=== PATIENT | female | born 1945 | race Caucasian/White ===

== ENCOUNTER 2018-04-10 09:44 | Emergency (ER) | payer MEDICARE, BC ==
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
[2018-04-10 10:25] VITALS: BP 136/48
--- NOTE | 2018-04-10 11:06 | UC ---
Skin Complaint HPI - HPI Summary HPI Summary: 73-year-old woman comes in with several days of rash on the left wrist. She reports that it's poison giana. He has bottles with an erythematous base. It's itchy. His now starting to spread to her right hand and the left leg. She feels well otherwise. She did try a topical but that did not keep from spreading. - History of Current Complaint Chief Complaint: UCRash Time Seen by Provider: 04/10/18 10:58 Stated Complaint: RASH L HAND Pain Intensity: 0 - Allergy/Home Medications Allergies/Adverse Reactions: Allergies Allergy/AdvReac Type Severity Reaction Status Date / Time ANY BONE DENSITY MEDICATION Allergy OSTEONECROS Uncoded 04/10/18 10:25 IS Review of Systems Constitutional: Negative Skin: Other - SEE HPI ENT: Negative Respiratory: Negative Cardiovascular: Negative Gastrointestinal: Negative Motor: Negative Neurovascular: Negative Musculoskeletal: Negative Neurological: Negative Psychological: Negative Is Patient Immunocompromised?: No All Other Systems Reviewed And Are Negative: Yes PMH/Surg Hx/FS Hx/Imm Hx - Additional Past Medical History Additional PMH: NO DIABETES - Surgical History Surgical History: Yes Surgery Procedure, Year, and Place: HYSTERECTOMY-2001. [facility]ACT [facility]IES-[facility]. 2 BLADDER LIFTS - Family History Known Family History: Negative: Diabetes - Social History Alcohol Use: Daily Alcohol Amount: 2 PER DAY Substance Use Type: None Smoking Status (MU): Never Smoked Tobacco Have You Smoked in the Last Year: No Physical Exam Triage Information Reviewed: Yes Appearance: Well-Appearing, No Pain Distress, Well-Nourished Vital Signs: Initial Vital Signs Temp 97.6 F 04/10/18 10:21 Pulse 67 04/10/18 10:21 Resp 18 04/10/18 10:21 BP 136/48 04/10/18 10:21 Pulse Ox 97 04/10/18 10:21 Vital Signs Reviewed: Yes Eye Exam: Normal Eyes: Positive: Conjunctiva Clear Neck exam: Normal Neck: Positive: Supple Respiratory: Positive: No respiratory distress Musculoskeletal Exam: Normal Musculoskeletal: Positive: Strength Intact, ROM Intact Neurological Exam: Normal Neurological: Positive: Alert, Muscle Tone Normal Psychological Exam: Normal Psychological: Positive: Age Appropriate Behavior Skin: Positive: Other - On the left wrist there is a 4 cm linear rash that is 2 cm in diameter that has clear fluid-filled vesicles on an erythematous base. Same rash is also on the right forearm in several places each one being 1 cm in diameter. The same rash with 1 cm diameter left lower leg. Course/Dx - Diagnoses Provider Diagnoses: POISON GIANA Discharge - Sign-Out/Discharge Documenting (check all that apply): Patient Departure All imaging exams completed and their final reports reviewed: No Studies - Discharge Plan Condition: Stable Disposition: HOME Prescriptions: predniSONE TAB* [Deltasone 20 MG TAB*] 40 mg PO DAILY #10 tab Patient Education Materials: Poison Giana (ED) Referrals: Sue Fairbanks MD [Primary Care Provider] - Additional Instructions: FOLLOW UP WITH YOUR DOCTOR IF NOT COMPLETELY IMPROVED. GET RECHECKED FOR ANY WORSENING OF YOUR CONDITION OR QUESTIONS OR CONCERNS. - Billing Disposition and Condition Condition: STABLE Disposition: Home
== END 2018-04-10 11:14 | disposition home or self-care (01) ==
LOC: UCEAST 09:44
DX: L23.7 Allergic contact dermatitis due to plants, except food (principal); Z88.8 Allergy status to other drugs, medicaments and biological substances; Z72.89 Other problems related to lifestyle
CPT/HCPCS: 99212; G0463

== ENCOUNTER 2019-05-08 10:18 | Emergency (ER) | payer MEDICARE ==
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
--- NOTE | 2019-05-08 11:10 | UC ---
Respiratory Complaint HPI - HPI Summary HPI Summary: 74 yo female presents with URI symptoms. She tells me that for the last week she has had an intermittently productive cough with yellow phlegm. She has been taking dayquill/nyquill with little relief. She does not smoke. Denies fever, chills, sore throat, sinus symptoms, SOB, chest pain. - History of Current Complaint Stated Complaint: RESP ISSUE Time Seen by Provider: 05/08/19 11:09 Hx Obtained From: Patient Onset/Duration: Gradual Onset Severity Currently: None - Allergies/Home Medications Allergies/Adverse Reactions: Allergies Allergy/AdvReac Type Severity Reaction Status Date / Time ANY BONE DENSITY MEDICATION Allergy OSTEONECROS Uncoded 05/08/19 11:04 IS Home Medications: Home Medications Aspirin 81 mg CHEW TAB* [Aspirin Low Dose TAB*] 81 mg PO DAILY 05/08/19 [ History Confirmed 05/08/19] PMH/Surg Hx/FS Hx/Imm Hx Endocrine History: Dyslipidemia Cardiovascular History: Hypertension Respiratory History: Asthma - Surgical History Surgical History: Yes Surgery Procedure, Year, and Place: HYSTERECTOMY-2001. [facility]IES-[facility] [place]. 2 BLADDER LIFTS - Family History Known Family History: Negative: Diabetes - Social History Lives: With Family Alcohol Use: Daily Alcohol Amount: 2 PER DAY Substance Use Type: None Smoking Status (MU): Never Smoked Tobacco Have You Smoked in the Last Year: No Review of Systems All Other Systems Reviewed And Are Negative: No Constitutional: Positive: Negative Skin: Positive: Negative Eyes: Positive: Negative ENT: Positive: Negative Respiratory: Positive: Cough Cardiovascular: Positive: Negative Gastrointestinal: Positive: Negative Neurological: Positive: Negative Psychological: Positive: Negative Physical Exam - Summary Physical Exam Summary: GENERAL: NAD. WDWN. No pain distress. SKIN: No rashes, sores, lesions, or open wounds. HEENT: Head: AT/NC Eyes: EOM intact. Conjunctiva clear without inflammation or discharge. Ears: Hearing grossly normal. TMs intact, no bulging, erythema, or edema. Nose: Nasal mucosa pink and moist. NTTP maxillary and frontal sinus. Throat: Posterior oropharynx without exudates, erythema, or tonsillar enlargement. Uvula midline. NECK: Supple. Nontender. No lymphadenopathy. CHEST: CTAB. No accessory muscle use. Breathing comfortably and in no distress. CV: RRR. Pulses intact. Cap refill <2seconds NEURO: Alert. PSYCH: Age appropriate behavior. Triage Information Reviewed: Yes Vital Signs: Vital Signs (72 hours) 05/08/19 11:06 Temperature 98.8 F Pulse Rate 60 Respiratory 18 Rate Blood Pressure 161/63 (mmHg) O2 Sat by Pulse 100 Oximetry Vital Signs Reviewed: Yes Respiratory Course/Dx - Course Course Of Treatment: Exam WNL and afebrile. Breathing well. Discussed viral vs bacterial causes with the pt and she prefers to be on anbx at this time as she is visiting her 1 year old grandson in a few days. - Differential Dx/Diagnosis Provider Diagnosis: URI (upper respiratory infection) Discharge ED - Sign-Out/Discharge Documenting (check all that apply): Patient Departure All imaging exams completed and their final reports reviewed: No Studies - Discharge Plan Condition: Stable Disposition: HOME Prescriptions: Amoxicillin PO (*) [Amoxicillin 500 MG CAP*] 500 mg PO Q12H #14 cap Patient Education Materials: Upper Respiratory Infection (ED) Referrals: Sue Fairbanks MD [Primary Care Provider] - Additional Instructions: If you develop a fever, shortness of breath, chest pain, new or worsening symptoms - please call your PCP or go to the ED immediately. Your blood pressure was high at todays visit. Please see your primary provider within 4 weeks for recheck and re-evaluation. - Billing Disposition and Condition Condition: STABLE Disposition: Home
[2019-05-08 11:11] VITALS: BP 161/63
== END 2019-05-08 11:27 | disposition home or self-care (01) ==
LOC: UCEAST 10:18
DX: J06.9 Acute upper respiratory infection, unspecified (principal); I10 Essential (primary) hypertension; J45.909 Unspecified asthma, uncomplicated; Z88.9 Allergy status to unspecified drugs, medicaments and biological substances; Z79.82 Long term (current) use of aspirin
CPT/HCPCS: 99212; G0463